=== PATIENT | female | born 1995 | race Caucasian/White ===

== ENCOUNTER 2023-09-05 19:11 | Inpatient (IN) | payer OTHER ==
[~2023-09-05] VITALS: Ht 175.3 cm; Wt 118.0 kg
[~2023-09-05 19:11] MED LIST: DICY20 PO; DIPH12.5EL PO; HYOS.125 PO; TEMA30 PO; ZOLOFT50 MG PO
[2023-09-05 19:26] VITALS: BP 122/73
[2023-09-05 19:49] LABS: BASOPHILS ABSOLUTE AUTO 0.01 K/mm3 (0.00-0.23); BASOPHILS PERCENT AUTO 0 % (0-2); EOSINOPHILS PERCENT AUTO 1 % (0-6); Hematocrit 35.3 % (33.0-51.0); Hemoglobin 12.7 g/dL (11.5-16.0); IMMATURE GRAN ABSOLUTE AUTO 0.04 K/mm3 (0.00-0.10); IMMATURE GRAN PERCENT AUTO 0 % (0-1); LYMPHOCYTES ABSOLUTE AUTO 1.68 K/mm3 (0.84-5.20); LYMPHOCYTES PERCENT AUTO 16 % (21-46); MONOCYTES ABSOLUTE AUTO 0.55 K/mm3 (0.16-1.47); MONOCYTES PERCENT AUTO 5 % (4-13); Mean Corpuscular HGB 31.8 pg (26.0-34.0); Mean Corpuscular Volume 88 fL (80-100); Mean Platelet Volume 9.9 fL (9.1-12.4); NEUTROPHILS ABSOLUTE AUTO 7.93 K/mm3 (1.96-9.15); NEUTROPHILS PERCENT AUTO 77 % (41-73); Platelet Count 199 K/mm3 (150-400); RDW Coefficient Variation 12.7 % (11.7-14.2); RDW Standard Deviation 40.8 fL (35.1-46.3); White Blood Cell Count 10.31 K/mm3 (4.00-11.30)
[2023-09-05 23:00] VITALS: BP 118/72
[2023-09-06] VITALS (23 sets, daily range): BP systolic 95–133; BP diastolic 50–89
[2023-09-07] VITALS (24 sets, daily range): BP systolic 93–127; BP diastolic 49–73
--- NOTE | 2023-09-07 15:57 | NUR ---
pt request marily, reports motrin gives her hives and rash, but aleve she takes with no problems for menstral cramps
[2023-09-08 00:15] VITALS: BP 117/65
[2023-09-08 05:57] VITALS: BP 113/60
[2023-09-08 06:57] LABS: Hematocrit 34.6 % (33.0-51.0); Hemoglobin 12.1 g/dL (11.5-16.0); Mean Corpuscular HGB 32.2 pg (26.0-34.0); Mean Corpuscular Volume 92 fL (80-100); Mean Platelet Volume 10.3 fL (9.1-12.4); Platelet Count 163 K/mm3 (150-400); RDW Coefficient Variation 13.2 % (11.7-14.2); Red Blood Cell Count 3.76 M/mm3 (3.80-5.20); White Blood Cell Count 10.94 K/mm3 (4.00-11.30)
[2023-09-08 07:06] VITALS: BP 114/68
--- NOTE | 2023-09-08 10:50 | NUR ---
TO [facility], DENIES ANY QUESIONS ON DC INSTRUCTIONS, ENCOURAGED TO CALL WITH ANY
--- NOTE | 2023-09-08 11:05 | NUR ---
DC HOME WITH BABY, MOM CARRIED BABY OUT, TOOK HOME PUMPED MILK FROM [place]. CHOOSE TO AMBULATE OUT, DENIES ANY QUESTIONS, ENCOURAGED TO CALL WITH ANY
== END 2023-09-08 11:00 | disposition home or self-care (01) | DRG 805 ==
LOC: OBS 19:11 → BC 19:16 → OBS 19:20 → BC 19:25
PROVIDERS: ADMIT Advanced Practice Midwife
PROC: 10E0XZZ Delivery of Products of Conception, External Approach (ICD-10-PCS; principal; 2023-09-07)
PROC: 10907ZC Drainage of Amniotic Fluid, Therapeutic from Products of Conception, Via Natural or Artificial Opening (ICD-10-PCS; 2023-09-07)
PROC: 3E033VJ Introduction of Other Hormone into Peripheral Vein, Percutaneous Approach (ICD-10-PCS; 2023-09-07)
PROC: 3E0DXGC Introduction of Other Therapeutic Substance into Mouth and Pharynx, External Approach (ICD-10-PCS; 2023-09-07)
PROC: 3E0R3BZ Introduction of Anesthetic Agent into Spinal Canal, Percutaneous Approach (ICD-10-PCS; 2023-09-07)
PROC: 00HU33Z Insertion of Infusion Device into Spinal Canal, Percutaneous Approach (ICD-10-PCS; 2023-09-07)
PROC: 4A0HXCZ Measurement of Products of Conception, Cardiac Rate, External Approach (ICD-10-PCS; 2023-09-07)
DX: O26.643 Intrahepatic cholestasis of pregnancy, third trimester (principal); K83.1 Obstruction of bile duct; Z37.0 Single live birth; O76 Abnormality in fetal heart rate and rhythm complicating labor and delivery; Z88.8 Allergy status to other drugs, medicaments and biological substances; Z3A.37 37 weeks gestation of pregnancy
CPT/HCPCS: 36415; 51702; 85025; 85027; 86850; 86900; 86901; A9270; J2590; J3010; J7120

== ENCOUNTER 2025-04-30 15:41 | Emergency (ER) | payer OTHER ==
[~2025-04-30] VITALS: Ht 175.3 cm; Wt 115.7 kg
[2025-04-30 15:48] VITALS: BP 130/64
[2025-04-30] MEDS ORDERED: Naproxen 250 MG TAB PO ONE (15:55)
[2025-04-30] MEDS ORDERED: OxyCODONE 7.5 mg/Acetam 325 mg TABLET PO ONE (17:10)
[2025-04-30] MEDS ORDERED: RX Prepack 6 Tabs Oxycodone 5mg UD ONE (18:05)
[2025-04-30] MEDS ORDERED: RX Prepack 2 Tabs Ondansetron ODT 4MG UD ONE (18:10)
[2025-04-30] MEDS ORDERED: Percocet 5-3251 EACH PO (18:25)
== END 2025-04-30 18:37 | disposition home or self-care (01) ==
LOC: ER 15:41
DX: S82.892A Other fracture of left lower leg, initial encounter for closed fracture (principal); Z88.6 Allergy status to analgesic agent; Z79.899 Other long term (current) drug therapy; W19.XXXA Unspecified fall, initial encounter
CPT/HCPCS: 29515; 73610; 81025; 99283-25; A9270